=== PATIENT | female | born 1990 ===

== ENCOUNTER → 2020-11-04 | Outpatient (CLI) | payer OTHER | LOC: COL.RAD 08:30 | DX: N99.71 Accidental puncture and laceration of a genitourinary system organ or structure during a genitourinary system procedure (principal) ==

== ENCOUNTER → 2023-01-16 | Outpatient (CLI) | payer OTHER | LOC: COL.RAD 14:30 | DX: N94.89 Other specified conditions associated with female genital organs and menstrual cycle (principal); K21.9 Gastro-esophageal reflux disease without esophagitis; R16.0 Hepatomegaly, not elsewhere classified | CPT/HCPCS: Q9967 ==